=== PATIENT | male | born 1995 | race Caucasian/White ===

== ENCOUNTER 2018-05-29 14:24 | Emergency (ER) | payer MEDICAID ==
[2018-05-29 17:42] VITALS: BP 106/58
== END 2018-05-29 17:42 | disposition home or self-care (01) ==
LOC: ED 14:24
DX: T78.1XXA Other adverse food reactions, not elsewhere classified, initial encounter (principal); J45.909 Unspecified asthma, uncomplicated; F41.9 Anxiety disorder, unspecified; F12.90 Cannabis use, unspecified, uncomplicated; X58.XXXA Exposure to other specified factors, initial encounter
CPT/HCPCS: J1200; J2930; J3490